=== PATIENT | female | born 1945 | race Caucasian/White ===

== ENCOUNTER → 2019-06-18 | Outpatient (CLI) | payer MEDICARE ==
--- NOTE | 2019-06-18 13:37 | RAD ---
CT HEAD WO CONTRAST Date: 06/18/2019 1:00 PM Clinical Indication: Left eye dysfunction Comparison: None. Technique: 5 mm axial tomographic images were obtained of the head without contrast. These were viewed on brain and bone windows. One or more of the following dose reduction techniques were utilized: Automated exposure control (AEC), Adjustment of mA and/or kV according to patient size, Use of iterative reconstruction technique such as ASiR, CT scan done according to ALARA and image gently/image wisely Findings: Mild generalized cerebral and cerebellar volume loss. Mild nonspecific periventricular hypoattenuation, most commonly seen with chronic small vessel ischemic disease. Calcified atherosclerosis of the bilateral cavernous and paraclinoid internal carotid arteries and intracranial vertebral arteries. No intra- or extra-axial mass or fluid collection. No acute hemorrhage. The ventricles are normal in size, shape, and morphology. The boone-white matter junction is normal. The subarachnoid cisterns are patent. The visualized paranasal sinuses are normal. The visualized portions of the orbits and globes are normal. The mastoid air cells are clear. The psych social worker topogram shows no lytic lesion or fracture. Impression: No acute intracranial process. Mild cerebral volume loss. Mild chronic small vessel ischemic disease. Electronically signed by: Mo Gutierrez MD (06/18/2019 1:35 PM) [email or web address]
--- NOTE | 2019-06-18 17:02 | RAD ---
DOPPLER CAROTID BILAT History: Left ocular pain Multiple grayscale, color, and duplex spectral analysis waveform sonographic images were acquired of the carotid, subclavian, and vertebral arteries. Comparison: None Findings: RIGHT SIDE: Peak systolic flow velocity of the distal CCA is 68 cm/sec. Peak systolic flow velocity of the ICA is 71 cm/sec. The ICA/CCA ratio is less than 1. Peak end diastolic flow velocity of the ICA is 18 cm/sec. The peak systolic velocity of the ECA is 68 cm/sec. No significant plaque formation is identified. LEFT SIDE: Peak systolic flow velocity of the distal CCA is 69 cm/sec. Peak systolic flow velocity of the ICA is 51 cm/sec. The ICA/CCA ratio is less than 1. Peak end diastolic flow velocity of the ICA is 13 cm/sec. Peak systolic flow velocity of the ECA is 78 cm/sec. No significant plaque formation is identified. Vertebral arteries: Bilateral vertebral arteries demonstrate antegrade flow. Impression: There is no stenosis of the internal carotid arteries. PQRS Compliance Statement - Stenosis calculations for carotid ultrasound studies are derived from validated velocity criteria which are known to correlate with the NASCET methodology. Electronically signed by: Mo Gutierrez MD (06/18/2019 4:59 PM) [email or web address]
== END | disposition home or self-care (01) ==
LOC: CT 12:44
PROVIDERS: ATTEND Specialist
DX: I65.23 Occlusion and stenosis of bilateral carotid arteries (principal); I67.82 Cerebral ischemia
CPT/HCPCS: 70450; 93880

== ENCOUNTER 2020-02-14 07:33 | Emergency (ER) | payer MEDICARE ==
[~2020-02-14] VITALS: Ht 152.4 cm; Wt 95.5 kg
[2020-02-14] MEDS ORDERED: ORPHENADRINE CITRATE 60 MG/2 ML VIAL. IM ONE (08:15)
[2020-02-14] MEDS ORDERED: ONDANSETRON ODT 4 MG TAB.RAPDIS PO ONE (08:15)
[2020-02-14 08:18] LABS: BILIRUBIN,URINE NEG (NEG); CLARITY,URINE HAZY; COLOR,URINE YELLOW; GLUCOSE,URINE NEG (NEG)
[2020-02-14 08:19] LABS: BACTERIA,URINE MOD /HPF (0-FEW); NITRITE,URINE NEG (NEG); SQUAMOUS EPITHELIAL CELL,UR FEW /LPF; UROBILINOGEN,URINE 0.2 mg/dL (0.2 mg/dL); WBC,URINE 20-40 /HPF (0-4)
[2020-02-14 08:21] LABS: HYALINE CASTS, URINE FEW /HPF
--- NOTE | 2020-02-14 09:07 | RAD ---
EXAM: CT Abdomen and Pelvis without IV contrast INDICATION: Bilateral flank pain radiating into the right abdomen and with hematuria. TECHNIQUE: Multi-detector row CT images were acquired from the lung bases through the abdomen and pelvis without the use of IV contrast. Sagittal and coronal images were acquired from the transaxial data. All CT scans performed at this facility utilize dose optimization techniques as appropriate to the exam, including the following: Automated exposure control and adjustment of the mA and/or KV according to patient size (this includes techniques or standardized protocols for targeted exams where dose is indication/reason for exam). ORAL CONTRAST: None COMPARISON: None FINDINGS: There is truncal obesity. The absence of IV contrast limits evaluation of soft tissue pathology. LOWER CHEST: Unremarkable LIVER: Borderline enlarged at 18.3 cm in craniocaudal length. A partially exophytic 6.7 cm cyst in hepatic segment 3 is present. BILIARY SYSTEM: Gallbladder is distended and has a rounded configuration to the neck that could represent the presence of noncalcified gallstones. No pericholecystic soft tissue stranding is present.. Bile ducts are not dilated. PANCREAS: Mild fatty involution of the pancreas, mimicking peripancreatic soft tissue stranding in the pancreatic head is present. SPLEEN: Unremarkable ADRENALS: Unremarkable KIDNEYS & URETERS: Right 2.1 cm renal cyst requiring no additional follow-up. Punctate nonobstructing mid pole 1 to 2 mm right renal calculus (image 57 of axial series 2). No hydronephrosis or hydroureter. Left kidney shows a 6 mm partially exophytic intermediate density lesion statistically likely to represent a cyst, best appreciated on the sagittal reformats on image 30 of series 4. No radiopaque stones, hydronephrosis or hydroureter is identified on the left side. BLADDER: Diffuse urinary bladder wall thickening is present. No radiopaque urinary bladder stones are identified. REPRODUCTIVE ORGANS: Unremarkable GASTROINTESTINAL: The stomach and small bowel are unremarkable. The large bowel shows scattered colonic diverticulosis. No findings suspicious for acute diverticulitis. The appendix is normal. MESENTERY/PERITONEUM/RETROPERITONEUM: Unremarkable VASCULAR: Unremarkable LYMPH NODES: No adenopathy OSSEOUS & SOFT TISSUES: Unremarkable IMPRESSION: 1. No evidence of obstructive uropathy or significant stone disease in the urinary tract besides a 1 to 2 mm nonobstructing mid pole right kidney stone. 2. Mild diffuse urinary bladder wall thickening could reflect cystitis in the appropriate clinical context. 3. Gallbladder distention likely reflects the presence of gallstones and and fatty involution in the pancreatic head mimicks soft tissue stranding. If there are any clinical signs of acute cholecystitis or pancreatitis, further imaging by gallbladder ultrasound could be pursued. Electronically signed by: Edilma Cali MD (02/14/2020 9:04 AM) [id number]
[2020-02-14] MEDS ORDERED: SULF1TAB24 PO (09:17)
[2020-02-14] MEDS ORDERED: ORPH-16 PO (09:17)
[2020-02-14] MEDS ORDERED: DICL50TA4 PO (09:17)
[2020-02-14] MEDS ORDERED: HYDR-3165 PO (09:17)
--- NOTE | 2020-02-14 09:17 | PHYS DOC ---
Past History Past Medical History: Hypertension, Hypothyroid Past Surgical History: No Surgical History Alcohol Use: Occasionally Adult General Chief Complaint Chief Complaint: BACK PAIN OR INJURY HPI HPI Patient is a 74-year-old female who presents with complaint of lower back pain that radiates around both flanks that started yesterday. Patient rates pain at an 829 out of 10. She denies any nausea or vomiting. She denies any diaphoresis. Patient denies any urinary discomfort. She also denies any fever. Patient states that pain is worsened with movement. Patient denies any bowel or bladder dysfunction.[] Review of Systems Review of Systems Constitutional: Denies fever or chills [] Respiratory: Denies cough or shortness of breath [] Cardiovascular: No additional information not addressed in HPI [] GI: Denies abdominal pain, nausea, vomiting, bloody stools or diarrhea [] : Denies dysuria or hematuria [] Musculoskeletal: Complains of lower back pain [] Integument: Denies rash or skin lesions [] All other systems were reviewed and found to be within normal limits, except as documented in this note. Current Medications Current Medications Current Medications Medications (Trade) Dose Ordered Sig/Jonathan Start Time Stop Time Status Last Admin Dose Admin Fentanyl Citrate (Fentanyl 2ml Vial) 75 mcg 1X ONCE 02/14/20 08:15 02/14/20 08:16 DC 02/14/20 08:15 75 MCG Ondansetron HCl (Zofran Odt) 4 mg 1X ONCE 02/14/20 08:15 02/14/20 08:16 DC 02/14/20 08:15 4 MG Orphenadrine Citrate (Norflex) 60 mg 1X ONCE 02/14/20 08:15 02/14/20 08:16 DC 02/14/20 08:15 60 MG Allergies Allergies Allergies Coded Allergies Type Severity Reaction Last Updated Verified No Known Drug Allergies 02/14/20 No Physical Exam Physical Exam Constitutional: Well developed, well nourished, no acute distress, non-toxic appearance. [] HENT: Normocephalic, atraumatic, bilateral external ears normal, oropharynx moist, no oral exudates, nose normal. [] Eyes: PERRLA, EOMI, conjunctiva normal, no discharge. [] Neck: Normal range of motion, no tenderness, supple, no stridor. [] Cardiovascular: Regular rate and rhythm[] Lungs & Thorax: Bilateral breath sounds clear to auscultation [] Abdomen: Bowel sounds normal, soft, with mild epigastric tenderness. [] Skin: Warm, dry, no erythema, no rash. [] Back: With bilateral lumbar paraspinal tenderness. [] Extremities: No tenderness, no cyanosis, no clubbing, ROM intact, no edema. [] Neurologic: Alert and oriented X 3, no focal deficits noted. [] Current Patient Data Vital Signs Vital Signs Date Time Temp Pulse Resp B/P (MAP) Pulse Ox O2 Delivery O2 Flow Rate FiO2 02/14/20 08:11 97.6 89 18 220/90 (133) 97 Room Air Lab Results Laboratory Tests Test 02/14/20 07:47 Urine Collection Type Unknown Urine Color Yellow Urine Clarity Hazy Urine pH 5.0 Urine Specific [place] >=1.030 Urine Protein 100 mg/dl (NEG-TRACE) Urine Glucose (UA) Neg mg/dL (NEG) Urine Ketones (Stick) Neg mg/dL (NEG) Urine Blood Mod (NEG) Urine Nitrite Neg (NEG) Urine Bilirubin Neg (NEG) Urine Urobilinogen Dipstick 0.2 mg/dL (0.2 mg/dL) Urine Leukocyte Esterase Trace (NEG) Urine RBC 6-10 /HPF (0-2) Urine WBC 20-40 /HPF (0-4) Urine Squamous Epithelial Cells Few /LPF Urine Transitional Epithelial Cells Occ /LPF Urine Bacteria Mod /HPF (0-FEW) Urine Hyaline Casts Few /HPF Urine Mucus Slight /LPF EKG EKG [] Radiology/Procedures Radiology/Procedures [] Impressions: PROCEDURE: CT ABDOMEN PELVIS WO CONTRAST EXAM: CT Abdomen and Pelvis without IV contrast INDICATION: Bilateral flank pain radiating into the right abdomen and with hematuria. TECHNIQUE: Multi-detector row CT images were acquired from the lung bases through the abdomen and pelvis without the use of IV contrast. Sagittal and coronal images were acquired from the transaxial data. All CT scans performed at this facility utilize dose optimization techniques as appropriate to the exam, including the following: Automated exposure control and adjustment of the mA and/or KV according to patient size (this includes techniques or standardized protocols for targeted exams where dose is indication/reason for exam). ORAL CONTRAST: None COMPARISON: None FINDINGS: There is truncal obesity. The absence of IV contrast limits evaluation of soft tissue pathology. LOWER CHEST: Unremarkable LIVER: Borderline enlarged at 18.3 cm in craniocaudal length. A partially exophytic 6.7 cm cyst in hepatic segment 3 is present. BILIARY SYSTEM: Gallbladder is distended and has a rounded configuration to the neck that could represent the presence of noncalcified gallstones. No pericholecystic soft tissue stranding is present.. Bile ducts are not dilated. PANCREAS: Mild fatty involution of the pancreas, mimicking peripancreatic soft tissue stranding in the pancreatic head is present. SPLEEN: Unremarkable ADRENALS: Unremarkable KIDNEYS & URETERS: Right 2.1 cm renal cyst requiring no additional follow-up. Punctate nonobstructing mid pole 1 to 2 mm right renal calculus (image 57 of axial series 2). No hydronephrosis or hydroureter. Left kidney shows a 6 mm partially exophytic intermediate density lesion statistically likely to represent a cyst, best appreciated on the sagittal reformats on image 30 of series 4. No radiopaque stones, hydronephrosis or hydroureter is identified on the left side. BLADDER: Diffuse urinary bladder wall thickening is present. No radiopaque urinary bladder stones are identified. REPRODUCTIVE ORGANS: Unremarkable GASTROINTESTINAL: The stomach and small bowel are unremarkable. The large bowel shows scattered colonic diverticulosis. No findings suspicious for acute diverticulitis. The appendix is normal. MESENTERY/PERITONEUM/RETROPERITONEUM: Unremarkable VASCULAR: Unremarkable LYMPH NODES: No adenopathy OSSEOUS & SOFT TISSUES: Unremarkable IMPRESSION: 1. No evidence of obstructive uropathy or significant stone disease in the urinary tract besides a 1 to 2 mm nonobstructing mid pole right kidney stone. 2. Mild diffuse urinary bladder wall thickening could reflect cystitis in the appropriate clinical context. 3. Gallbladder distention likely reflects the presence of gallstones and and fatty involution in the pancreatic head mimicks soft tissue stranding. If there are any clinical signs of acute cholecystitis or pancreatitis, further imaging by gallbladder ultrasound could be pursued. Electronically signed by: Saurav Cali MD (02/14/2020 9:04 AM) [id number] DICTATED AND SIGNED BY: SAURAV CALI MD DATE: 02/14/20 0904 CC: ESTEPHANIE GODINEZ Jr. DO; ZACK DANIELLE MD ~ Course & Med Decision Making Course & Med Decision Making Pertinent Labs and Imaging studies reviewed. (See chart for details) [] Dragon Disclaimer Dragon Disclaimer This electronic medical record was generated, in whole or in part, using a voice recognition dictation system. Departure Departure: Impression: Primary Impression: UTI (urinary tract infection) Additional Impression: Low back pain Disposition: 01 HOME, SELF-CARE Condition: STABLE Referrals: ZACK DANIELLE MD (PCP) Patient Instructions: Back Pain, Adult, Urinary Tract Infection Scripts Orphenadrine Citrate (ORPHENADRINE CITRATE) 100 Mg Tablet.er 1 TAB PO BID PRN for MUSCLE SPASMS, #14 TAB Prov: ESTEPHANIE GODINEZ Jr. DO 02/14/20 Hydrocodone Bit/Acetaminophen (NORCO 5-325 TABLET) 1 Each Tablet 1 TAB PO PRN Q6HRS PRN for PAIN, #12 TAB 0 Refills Prov: ESTEPHANIE GODINEZ Jr. DO 02/14/20 Diclofenac Sodium (DICLOFENAC SODIUM) 50 Mg Tablet.dr 1 TAB PO BID PRN for PAIN, #20 TAB Prov: ESTEPHANIE GODINEZ Jr. DO 02/14/20 Sulfamethoxazole/Trimethoprim (BACTRIM DS TABLET) 1 Each Tablet 1 TAB PO BID for infection for 10 Days, #20 TAB 0 Refills Prov: ESTEPHANIE GODINEZ Jr. DO 02/14/20 Problem Qualifiers Primary Impression: UTI (urinary tract infection) Urinary tract infection type: acute cystitis Hematuria presence: with hematuria Qualified Codes: N30.01 - Acute cystitis with hematuria Additional Impression: Low back pain Chronicity: acute Back pain laterality: bilateral Sciatica presence: without sciatica Qualified Codes: M54.5 - Low back pain ESTEPHANIE GODINEZ Jr. DO Feb 14, 2020 09:17
[2020-02-14] MEDS ORDERED: IV NORMAL SALINE 1,000ML 1,000 ML IV SCH (09:23)
[2020-02-14] MEDS ORDERED: SMZ/TMP 800/160MG TABLET. PO ONE (09:30)
[2020-02-14 09:54] LABS: BASO # 0.1 x10^3/uL (0.0-0.2); BASO % 1 % (0-3); EOS % 0 % (0-3); HEMATOCRIT 42.6 % (36.0-47.0); HEMOGLOBIN 14.2 g/dL (12.0-15.5); LYMPH # 0.8 x10^3/uL (1.0-4.8); LYMPH % 6 % (24-48); MEAN CORPUSCULAR HEMOGLOBIN 31 pg (25-35); MEAN CORPUSCULAR HGB CONC 33 g/dL (31-37); MEAN CORPUSCULAR VOLUME 93 fL (79-100); MONO # 0.5 x10^3/uL (0.0-1.1); MONO % 4 % (0-9); NEUT # 12.6 x10^3uL (1.8-7.7); NEUT % 90 % (31-73); PLATELET COUNT 399 x10^3/uL (140-400); RED BLOOD COUNT 4.59 x10^6/uL (3.50-5.40); RED CELL DISTRIBUTION WIDTH 14.2 % (11.5-14.5); WHITE BLOOD COUNT 13.9 x10^3/uL (4.0-11.0)
[2020-02-14 09:56] VITALS: BP 167/55
[2020-02-14 10:04] LABS: CALCIUM 9.1 mg/dL (8.5-10.1); CREATININE 0.7 mg/dL (0.6-1.0); GFR 81.8; POTASSIUM 3.5 mmol/L (3.5-5.1)
[2020-02-14 10:10] LABS: TOTAL BILIRUBIN 0.6 mg/dL (0.2-1.0); TOTAL PROTEIN 8.2 g/dL (6.4-8.2)
== END 2020-02-14 10:20 | disposition home or self-care (01) ==
LOC: ER 07:33
DX: N30.01 Acute cystitis with hematuria (principal); M54.5 Low back pain; I10 Essential (primary) hypertension; E03.9 Hypothyroidism, unspecified
CPT/HCPCS: 36415; 74176; 80053; 81001; 83690; 85025; 87086; 96372; 99284; J2360; J3010; Q0162; J7030

== ENCOUNTER 2020-11-26 21:15 | Emergency (ER) | payer MEDICARE ==
[~2020-11-26] VITALS: Ht 152.4 cm; Wt 95.5 kg
[~2020-11-26 21:15] MED LIST: DICL50TA4 PO; HYDR-3165 PO; ORPH-16 PO; SULF1TAB24 PO
--- NOTE | 2020-11-26 21:43 | PHYS DOC ---
Past History Past Medical History: Hypertension, Hyperthyroid Past Surgical History: No Surgical History Alcohol Use: Occasionally Adult General Chief Complaint Chief Complaint: CHEST PAIN HPI HPI Patient is a 85-year-old female presents via POV for shortness of breath. Reports this is been going on for "about a week or so". Nothing known makes better, physical exertion and laying completely flat makes worse. Patient admits that her symptoms have been constant with associated dull chest pressure and feeling that she cannot take a deep breath. Patient lives at home with , no known sick contacts, denies any symptoms such as fever, URI-like symptoms, chest ripping or tearing pain, abdominal pain, urinary symptoms, changes in bladder or bowel function, no motor or sensory function changes, no neurologic abnormalities. Admits she has history of hyperthyroid with recent levels checked 2 weeks ago and normal, has otherwise been taking all other home medications for issues such as hypertension as scheduled. States she was tested 3 days ago for Covid as she was concerned about her shortness of breath symptoms but this test is still pending. Denies any prior history of provocative cardiac testing or intervention, is not on any anticoagulants, is a full code Review of Systems Review of Systems Fourteen body systems of review of systems have been reviewed. See HPI for pertinent positives and negative responses, other jessica all other systems are neg ative, non-pertinent or non-contributory Current Medications Current Medications Current Medications Medications (Trade) Dose Ordered Sig/Jonathan Start Time Stop Time Status Last Admin Dose Admin Aspirin (Aspirin Chewable) 324 mg 1X ONCE 11/26/20 22:00 11/26/20 22:01 DC 11/26/20 22:07 Furosemide (Lasix) 40 mg 1X ONCE 11/27/20 01:00 11/27/20 01:01 Nitroglycerin (Nitrostat) 0.4 mg PRN Q5MIN PRN 11/26/20 22:30 11/26/20 23:08 Allergies Allergies Allergies Coded Allergies Type Severity Reaction Last Updated Verified No Known Drug Allergies 02/14/20 No Physical Exam Physical Exam Constitutional: Well developed, well nourished, appears in moderate respiratory distress, tachypneic with increased work of breathing, speaking in few word sentences only HENT: Normocephalic, atraumatic, bilateral external ears normal, oropharynx moist, no oral exudates, nose normal. Eyes: PERRLA, EOMI, conjunctiva normal, no discharge. Neck: Normal range of motion, no tenderness, supple, no stridor. Cardiovascular: Heart rate regular, sinus rhythm, no murmurs rubs or gallops Lungs & Thorax: Tachypneic, increased work of breathing, in respiratory distress speaking in few word sentences only, saturating 62% on room air on initial arrival to ER room Abdomen: Bowel sounds normal, soft, no tenderness, no masses, no pulsatile masses. Nonsurgical abdomen, no peritoneal signs Skin: Warm, dry, no erythema, no rash. Back: No tenderness, no CVA tenderness. Extremities: No tenderness, no cyanosis, no clubbing, ROM intact, no edema. Neurologic: Alert and oriented X 3, grossly normal motor & sensory function, no focal deficits noted. Psychologic: Anxious affect, judgement normal, mood normal. Current Patient Data Vital Signs Vital Signs Date Time Temp Pulse Resp B/P (MAP) Pulse Ox O2 Delivery O2 Flow Rate FiO2 11/26/20 23:38 71 30 130/69 (89) 92 BiPAP/CPAP 11/26/20 23:08 70 130/69 11/26/20 21:47 97.9 76 36 145/67 (93) 91 NonRebreather Mask 15.0 Lab Results Laboratory Tests Test 11/26/20 21:45 11/26/20 22:10 11/27/20 00:25 White Blood Count 8.2 x10^3/uL Red Blood Count 4.73 x10^6/uL Hemoglobin 14.1 g/dL Hematocrit 42.2 % Mean Corpuscular Volume 89 fL Mean Corpuscular Hemoglobin 30 pg Mean Corpuscular Hemoglobin Concent 33 g/dL Red Cell Distribution Width 14.7 % Platelet Count 326 x10^3/uL Neutrophils (%) (Auto) 88 % Lymphocytes (%) (Auto) 6 % Monocytes (%) (Auto) 6 % Eosinophils (%) (Auto) 0 % Basophils (%) (Auto) 0 % Neutrophils # (Auto) 7.2 x10^3uL Lymphocytes # (Auto) 0.5 x10^3/uL Monocytes # (Auto) 0.5 x10^3/uL Eosinophils # (Auto) 0.0 x10^3/uL Basophils # (Auto) 0.0 x10^3/uL Segmented Neutrophils % 79 % Band Neutrophils % 2 % Lymphocytes % 15 % Monocytes % 4 % Platelet Estimate Adequate Bedside Venous pH 7.43 7.44 Bedside Venous pCO2 35 mmHg 37 mmHg Bedside Venous pO2 38 mmHg 40 mmHg Venous Blood HCO3 23 mmol/L 26 mmol/L POC Venous O2 Saturation (Ellen) 75 % 77 % Bedside FiO2 100 60 Sodium Level 137 mmol/L Potassium Level 4.0 mmol/L Chloride Level 99 mmol/L Carbon Dioxide Level 26 mmol/L Anion Gap 12 Blood Urea Nitrogen 46 mg/dL Creatinine 1.3 mg/dL Estimated GFR (Cockcroft-Gault) 39.9 BUN/Creatinine Ratio 35 Glucose Level 155 mg/dL Calcium Level 9.7 mg/dL Total Bilirubin 0.4 mg/dL Aspartate Amino Transf (AST/SGOT) 57 U/L Alanine Aminotransferase (ALT/SGPT) 33 U/L Alkaline Phosphatase 143 U/L Troponin I Quantitative < 0.017 ng/mL EP-Tao-X-Type Natriuretic Peptide 1214 pg/mL Total Protein 8.5 g/dL Albumin 2.9 g/dL Albumin/Globulin Ratio 0.5 Influenza Type A (Rapid) Negative Influenza Type B (Rapid) Negative Current Medications Medications (Trade) Dose Ordered Sig/Jonathan Route PRN Reason Start Time Stop Time Status Last Admin Dose Admin Aspirin (Aspirin Chewable) 324 mg 1X ONCE PO 11/26/20 22:00 11/26/20 22:01 DC 11/26/20 22:07 Nitroglycerin (Nitrostat) 0.4 mg PRN Q5MIN PRN SL CHEST PAIN 11/26/20 22:30 11/26/20 23:08 Furosemide (Lasix) 40 mg 1X ONCE IVP 11/27/20 01:00 11/27/20 01:01 EKG EKG EKG ordered and interpreted by myself at 2144 hrs. as sinus rhythm at 74 bpm, unremarkable intervals, no axis deviation, no obvious ischemic findings, no STEMI Radiology/Procedures Radiology/Procedures Exam: Chest one view INDICATION: Chest pain TECHNIQUE: Frontal view of the chest Comparisons: None FINDINGS: The cardiomediastinal silhouette and pulmonary vessels are within normal limits. Hazy opacity at the lungs bilaterally. No pleural effusion. IMPRESSION: Findings related to pulmonary edema. Superimposed infectious process is difficult to exclude. Electronically signed by: Shantel Lechuga MD (11/26/2020 10:10 PM) [facility] Heart Score HEART Score for Chest Pain: HEART Score for Chest Pain Response (Comments) Value History Slighlty/Non-Suspicious 0 ECG Normal 0 Age > 65 2 Risk Factors >3 Risk Factors or Hx CAD 2 Troponin < Normal Limit 0 Total 4 Risk Factors: Risk Factors: DM, Current or recent (<one month) smoker, HTN, HLP, family history of CAD, obesity. Risk Scores: Risk Factors: DM, Current or recent (<one month) smoker, HTN, HLP, family history of CAD, obesity. Course & Med Decision Making Course & Med Decision Making Pertinent Labs and Imaging studies reviewed. (See chart for details) Discussed with patient no obvious emergent and/or surgical findings necessitating immediate PCI and/or surgery With that said, patient presented in acute respiratory distress with hypoxia on arrival. Etiology likely cardiogenic, cannot exclude COVID-19 infection in individual who has current outpatient Covid test pending. She has had no fever or classic Covid symptoms besides shortness of breath Patient's respiratory status improved with ER intervention such as supplemental oxygen administration, positive pressure ventilation in addition to medications to relieve pulmonary edema Nonetheless, I have concern because of patient's pulmonary edema is cardiac in origin. I disclosed this with patient, I discussed need for admission for ongoing medical management of her pulmonary edema. I discussed she would benefit transfer to facility with interventional cardio Case discussed with [facility] who agreed need for patient transfer and admission for further medical evaluation and consideration for potential cardiac catheterization. Patient was accepted under the care of Dr. Marlena Benjamin at [facility] location Patient was updated on proposed plan of care, she was amenable to transfer for admission All questions and concerns addressed prior to ER transfer via EMS Critical Care Time This patient required critical care. Due to the fact that the patient required a significant amount of one on one physician - patient contact time, ordering and review of studies, arranging urgent treatment with development of a management plan, evaluation of patients response to treatment with frequent reassessments, and discussions with other providers this patient required critical care time in excess of 30 minutes. Critical care time was indicated due to the inherent instability and/or potential for instability in this patient. The critical care time that is allocated to this patient is above and beyond any time spent on any other billable procedures performed on this patient. Dragon Disclaimer Dragon Disclaimer This electronic medical record was generated, in whole or in part, using a voice recognition dictation system. Departure Departure: Impression: Primary Impression: Acute respiratory failure with hypoxia Additional Impressions: Pulmonary edema Person under investigation for COVID-19 Disposition: 02 DC/TRF OTHER SHORT TERM HOS ([facility]) Admitting Physician: Other (dr marlena benjamin) Condition: STABLE Referrals: ZACK DANIELLE MD (PCP) Problem Qualifiers ERON HERMOSILLO DO Nov 26, 2020 21:43
[2020-11-26] MEDS ORDERED: ASPIRIN CHEWABLE 81 MG TABLET. PO ONE (22:00)
[2020-11-26 22:06] LABS: BASO % 0 % (0-3); EOS % 0 % (0-3); HEMATOCRIT 42.2 % (36.0-47.0); HEMOGLOBIN 14.1 g/dL (12.0-15.5); LYMPH # 0.5 x10^3/uL (1.0-4.8); LYMPH % 6 % (24-48); MEAN CORPUSCULAR HEMOGLOBIN 30 pg (25-35); MEAN CORPUSCULAR HGB CONC 33 g/dL (31-37); MEAN CORPUSCULAR VOLUME 89 fL (79-100); MONO # 0.5 x10^3/uL (0.0-1.1); MONO % 6 % (0-9); NEUT # 7.2 x10^3uL (1.8-7.7); NEUT % 88 % (31-73); PLATELET COUNT 326 x10^3/uL (140-400); RED BLOOD COUNT 4.73 x10^6/uL (3.50-5.40); RED CELL DISTRIBUTION WIDTH 14.7 % (11.5-14.5); WHITE BLOOD COUNT 8.2 x10^3/uL (4.0-11.0)
--- NOTE | 2020-11-26 22:13 | RAD ---
Exam: Chest one view INDICATION: Chest pain TECHNIQUE: Frontal view of the chest Comparisons: None FINDINGS: The cardiomediastinal silhouette and pulmonary vessels are within normal limits. Hazy opacity at the lungs bilaterally. No pleural effusion. IMPRESSION: Findings related to pulmonary edema. Superimposed infectious process is difficult to exclude. Electronically signed by: Shantel Lechuga MD (11/26/2020 10:10 PM) [facility]
[2020-11-26 22:16] LABS: CALCIUM 9.7 mg/dL (8.5-10.1); CREATININE 1.3 mg/dL (0.6-1.0); GFR 39.9
[2020-11-26 22:28] LABS: ALBUMIN 2.9 g/dL (3.4-5.0); ALBUMIN/GLOBULIN RATIO 0.5 (1.0-1.7); TOTAL BILIRUBIN 0.4 mg/dL (0.2-1.0); TOTAL PROTEIN 8.5 g/dL (6.4-8.2)
[2020-11-26] MEDS ORDERED: NITROGLYCERIN SUBLINGUAL 0.4 MG BOTTLE OF 25. SL PRN (22:30)
[2020-11-26 22:49] LABS: % BANDS 2 % (0-9); % LYMPHS 15 % (24-48); % MONOS 4 % (0-10); % SEGS 79 % (35-66); PLT ESTIMATE ADEQUATE (ADEQUATE)
[2020-11-26 22:52] LABS: INFLUENZA A PATIENT NEGATIVE (NEGATIVE); INFLUENZA B PATIENT NEGATIVE (NEGATIVE)
--- NOTE | 2020-11-26 22:56 | EKG ---
[address] [address] Test Date: 2020-11-26 Test Time: 21:37:59 Pat Name: JEFF VALENZUELA Department: Room: Gender: F Leasing Representative: : 1945 Requested By: ERON HERMOSILLO Order Number: [id number] Reading MD: Reilly Sanchez Measurements Intervals [place] Rate: 74 P: 31 MA: 174 QRS: 11 QRSD: 90 T: 24 QT: 378 QTc: 420 Interpretive Statements SINUS RHYTHM NORMAL ECG RI6.02 No previous ECG available for comparison Electronically Signed On 11-29-2020 13:54:37 [employer]ILDING [employer] by Reilly Sanchez
[2020-11-27] MEDS ORDERED: FUROSEMIDE 40 MG/4 ML VIAL IVP ONE (01:00)
[2020-11-27 01:05] VITALS: BP 118/81
--- NOTE | 2020-11-28 09:36 | NUR ---
IP: notified nurse Leah at [facility] of COVID result, already aware.
== END 2020-11-27 01:20 | disposition short-term general hospital (02) ==
LOC: ER 21:15
DX: U07.1 COVID-19 (principal); J96.01 Acute respiratory failure with hypoxia; J81.1 Chronic pulmonary edema; I10 Essential (primary) hypertension; E05.90 Thyrotoxicosis, unspecified without thyrotoxic crisis or storm
CPT/HCPCS: 36415; 71045; 80053; 82803; 83880; 84443; 84484; 85007; 85025; 87804; 93005; 94660; 96374; 99291; 99292; C9803; J1940; U0003; 99285-25